=== PATIENT | female | born 1950 | race Two or more races ===

== ENCOUNTER → 2022-10-10 10:33 | Outpatient (BNVA) | payer MEDICARE, OTHER, SELFPAY | PROVIDERS: Visit Provider Student in an Organized Health Care Education/Training Program | DX: M35.01 Sjogren syndrome with keratoconjunctivitis (principal); D89.1 Cryoglobulinemia | CPT/HCPCS: 36415; 80053; 81001; 82595; 82784; 84156; 84165; 85025; 86140; 86160; 86225; 86334; 86431; 99202 ==

== ENCOUNTER 2022-10-10 11:32 | Outpatient (REF) | payer MEDICARE, OTHER, SELFPAY ==
[2022-10-10 12:07] LABS: MANUAL DIFF FLAG NO
[2022-10-10 12:37] LABS: Basophils Percent Auto 0.4 % (0-2); Eosinophils Absolute Auto 0.2 X10*3/uL (0.0-0.4); Eosinophils Percent Auto 3.1 % (0-4); Hematocrit 39.2 % (37.0-47.0); Hemoglobin 12.8 g/dl (12.0-16.0); Imm Gran Abs Auto 0.02 X10*3/uL (0.00-0.03); Imm Gran Pct Auto 0.4 % (0.0-0.4); Lymphocytes Absolute Auto 1.6 X10*3/uL (1.2-4.9); Mean Corpuscular HGB Conc 32.7 g/dl (31.0-35.0); Mean Corpuscular Hemoglobin 31.5 pg (27.0-33.0); Mean Corpuscular Volume 96.6 fL (80.0-98.0); Mean Platelet Volume 10.3 fL (9.4-12.3); Monocytes Absolute Auto 0.3 X10*3/uL (0.1-1.2); Monocytes Percent Auto 6.1 % (2-11); Neutrophils Absolute Auto 3.3 x10*3/uL (2.0-8.3); Platelet Count 288 X10*3/uL (160-400); Red Blood Count 4.06 X10*6/uL (4.20-5.50); Red Cell Distribution Width 13.3 % (11.0-16.0); White Blood Count 5.4 X10*3/uL (4.8-10.8)
[2022-10-10 12:55] LABS: Alanine Aminotransferase 23 U/L (0-31); Albumin Level 4.5 g/dL (3.5-5.0); Alkaline Phosphatase 53 U/L (39-117); Anion Gap 11 (12-20); Aspartate Amino Transferase 28 U/L (5-31); Bilirubin Total 0.6 mg/dL (0.0-1.0); Blood Urea Nitrogen 23 mg/dL (9-16); C Reactive Protein < 0.10 mg/dL (< or = 0.50); Calcium 10.7 mg/dL (8.4-10.2); Carbon Dioxide 31 mmol/L (22-29); Chloride 103 mmol/L (96-108); Estimated Glomerular Filt Rate > 60; Glucose Random 99 mg/dL (60-115); Potassium 4.3 mmol/L (3.3-5.1); Rheumatoid Factor 21.7 IU/mL (<15.0); Sodium 141 mmol/L (135-145); Total Protein 7.7 g/dL (6.5-8.0)
[2022-10-10 13:12] LABS: Appearance Urine Clear; Color Urine Yellow; Glucose Urine UA Negative (Negative); Leukocyte Esterase Urine Negative (Negative); Nitrite Urine Negative (Negative); PH 5.5 (5.0-9.0); Urine Blood Negative (Negative); Urine Ketones Negative (Negative); Urine Protein Negative (Neg-Trace)
[2022-10-10 13:18] LABS: Bacteria Urine None Seen (None Seen); Hyaline Casts Urine 0-2 /LPF (0-2); RBC Urine 0-2 /HPF (0-2); Squamous Epithelial Cell Urine 0-2 /HPF (0-2); WBC Urine 0-5 /HPF (0-5)
[2022-10-10 13:38] LABS: Creatinine Urine 30.96 mg/dL; Total Protein Urine Random < 7 mg/dL (<12)
[2022-10-12 17:04] LABS: Anti DNA DS Antibody <1 IU/mL
[2022-10-15 00:03] LABS: Prot Elec - Albumin 4.6 g/dL (3.8-4.8); Prot Elec - Alpha1 0.3 g/dL (0.2-0.3); Prot Elec - Alpha2 0.7 g/dL (0.5-0.9); Prot Elec - Beta 1 0.4 g/dL (0.4-0.6); Prot Elec - Beta 2 0.3 g/dL (0.2-0.5); Prot Elec - Gamma 1.3 g/dL (0.8-1.7); Prot Elec - Total Protein 7.5 g/dL (6.1-8.1)
[2022-10-16 23:08] LABS: IgA 249 mg/dL (70-320); IgG 1310 mg/dL (600-1540); IgM 81 mg/dL (50-300)
[2022-10-22 14:03] LABS: Complement C3 113 mg/dL (83-193)
== END 2022-10-10 11:33 | disposition home or self-care (01) ==
LOC: HO.10HDL 11:32
PROVIDERS: Visit Provider Student in an Organized Health Care Education/Training Program
DX: Z13.89 Encounter for screening for other disorder (principal)
CPT/HCPCS: 36415; 80053; 81001; 82595; 82784; 84156; 84165; 85025; 86140; 86160; 86225; 86334; 86431

== ENCOUNTER 2022-11-23 10:16 | Outpatient (REF) | payer MEDICARE, OTHER, SELFPAY ==
--- NOTE | 2022-11-23 11:32 | PFT_ITS ---
COMMENTS: Patient attended the maneuvers. Difficulties performing the FRC and lung volumes. The patient did get the best effort. DIAGNOSES: Sjogren's. SPIROMETRY: The FEV1 to FVC 87% with an FEV1 of 2.37 L, which is 128% predicted and an FVC of 2.73 L, which is 110% predicted. Bronchodilators were not used. Maximum voluntary ventilation 85% predicted. LUNG VOLUMES: Total lung capacity 114% predicted with a residual volume of 114% predicted. DIFFUSION CAPACITY: DLCO of 75% predicted. COMPARISONS: None. INTERPRETATION: No obstructive nor restrictive ventilatory defects identified. Post bronchodilator results are not available at this time. The patient did receive albuterol. The lung volumes are within normal limits, and the patient does have a mild diffusion impairment. Clinical correlation warranted. Beny Aguayo MD MR/MODL / [id number] MTDD
== END 2022-11-23 10:17 | disposition home or self-care (01) ==
LOC: HO.RESP 10:16
PROVIDERS: Visit Provider Student in an Organized Health Care Education/Training Program
DX: R06.02 Shortness of breath (principal)
CPT/HCPCS: 94010; 94727; 94729

== ENCOUNTER → 2022-11-23 11:32 | Outpatient (BNV) | payer MEDICARE, OTHER, SELFPAY | PROVIDERS: Visit Provider Hospitalist | DX: M35.00 Sjogren syndrome, unspecified (principal) | CPT/HCPCS: 94060; 94727; 94729 ==

== ENCOUNTER 2023-10-03 10:04 | Outpatient (AMB) | payer MEDICARE, OTHER, SELFPAY ==
--- NOTE | 2023-10-03 10:16 | A.OFFVIS_ITS ---
Vital Signs 10/03/23 10:21 Height 5 ft 1 in Weight 107 lb 12.897 oz BMI 20.4 BP 116/82 Blood Pressure Location Rt brachial Position Sitting Pulse 64 Pulse Oximetry (%) 98 Intake Visit Reasons: Sjogren's Intake Note: Patient last seen 10/10/22 presents today for follow up and test results. Allergies No Known Allergies Allergy (Verified 10/03/23 10:17) Medication List - Last Reconciled 10/03/23 by Ankur Gutierrez MD alendronate 70 mg PO QWEEK ascorbate calcium (vitamin C) 500 mg PO DAILY calcium carbonate-vitamin D3 600 mg-5 mcg (200 unit) 1 tab PO DAILY gznpwozr-gczqhgo-edyy-lutein tabs PO omega 2-gkz-oix-fish oil 1,000 mg (120 mg-180 mg) (Fish Oil) 1 cap PO DAILY HPI Comments Details: This is a 73-year-old female with Sjogren's syndrome who presents for follow-up. She states that she has been doing reasonably well overall. I and mouth dryness is controlled with eyedrops, nasal drops and lozenges. Raynaud's is well controlled. She gets intermittent aches in her neck and low back but nothing new. She states that she has a cough in the morning, she clears out some mucus then she is better throughout the day. She denies any cough throughout the day or shortness of breath. Has any heartburn or food getting stuck in her throat. Denies any fevers or weight loss. Initial history: This is a 72-year-old female with past medical history of Sjogren's who presents as a new patient. Her previous tank cleaner left the practice. Symptoms started in 2007 with left hip pain and neck pain as well as eye and oral dryness. Patient's symptoms have been fairly stable over the years without complications. She also has Raynaud's. Patient however never had any complications of Raynaud's. She never went to the emergency room for Raynaud's and never developed digital tip ulcers. She is complaining of right sided neck pain and difficulty turning her head. She has a massaging heating pad that does seem to help. She has done physical therapy for her neck a few years ago which was helpful. Patient states that she has chronic dry eyes and dry mouth. Uses artificial tears for the eyes and drinks plenty of water for dry mouth, also us es plenty of carbonated beverages such as ulcers. She denies any cough or shortness of breath. Denies reflux. On alendronate by PCP. She denies any fevers or weight loss. [facility] Medical History Hx of abnormal cervical Papanicolaou smear Abnormal findings on diagnostic imaging of breast Systolic murmur Disorder of connective tissue Rosacea Surgical History History of removal of skin mole Family History Father Rheumatoid arthritis Lung cancer Heart disease Mother Thyroid disease Sister Thyroid disease Daughter Thyroid disease Social History Household Members: Spouse Housing: Apartment Alcohol intake: current Alcohol type: beer Patient Tobacco Use Status: Former Tobacco user Current occupational status: retired Review of Systems Eyes Reports dry eyes ENT Reports neck pain Card Reports no additional complaints Resp Reports cough Musc Reports neck pain Physical Exam Vital Signs: Last Vital Signs Pulse 64 10/03/23 10:21 BP 116/82 10/03/23 10:21 Pulse Ox 98 10/03/23 10:21 BMI result Body Mass Index 20.4 Const General: cooperative, healthy appearing and comfortable Nutritional Appearance: average body habitus Orientation/consciousness: patient oriented x3 Limitations: no limitations HEENT Head: Yes normocephalic and Yes atraumatic Resp Effort & Inspection: normal respiratory effort and able to speak in complete sentences Auscultation: clear to auscultation bilaterally Cardio Rate: regular rate Rhythm: regular rhythm GI Inspection: No distended Palpation (GI): Soft to palpation and nontender Neuro General: patient oriented x3 Extrem Other: Mild osteoarthritic changes of both hands with no active synovitis Normal nailfold capillaroscopy Results Reviewed Results Reviewed: Labs 04/02? FABIO positive? ESR 2? CRP normal Immunofixation and SPEP normal? 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 RF 17 (<14) + HLA b27 in the past Intermittent low titer + DSdNA in the past Assessment & Plan Assessment & Plan (1) Sjogrens syndrome: Comment: onset 2007 (arthralgias, dry eyes, dry mouth, Raynaud's, +FABIO,+++SSA, ++SSb, +RF, intermittent low titer positive DsDNA, intermittent low C3, +HLA b27) Code(s): M35.00 - Sjogren syndrome, unspecified Category: Medical Qualifiers: Sjogren organ or system involvement: keratoconjunctivitis Qualified Code(s): M35.01 - Sjogren syndrome with keratoconjunctivitis Plan: This is a 73-year-old female with Sjogren syndrome who presents for follow-up. Sicca symptoms are well controlled as well as Raynaud's symptoms. Patient has been having some technical services assistant cough. This might be due to mild reflux. I suggested sleeping more elevated such as using 3 pillows.. If no improvement, consider ccbd-noo-mdacioc Pepcid trial for 2-4 weeks. Will order PFT and 2D echo to screen for ILD/PAH. Also check labs to screen for disease activity as well as screen for paraproteinemias. 2D echo/PFT labs to be completed in July. Follow-up in September of 2024 Plan I spent 32 minutes reviewing patient's chart, evaluating patient, ordering diagnostic workup, counseling patient and documenting in the chart Orders: Orders PFT pulmonary function test 07/13/24. - Sjogren syndrome with keratoconjunctivitis, R06.00 - Dyspnea, unspecified CA echo transthoracic complete 07/13/24. - Sjogren syndrome with keratoconjunctivitis Anti DNA DS Antibody 07/13/245. - Sjogren syndrome with keratoconjunctivitis Complement C3 07/13/245. - Sjogren syndrome with keratoconjunctivitis Complement C4 07/13/245. - Sjogren syndrome with keratoconjunctivitis Erythrocyte Sedimentation Rate 07/13/245. - Sjogren syndrome with keratoconjunctivitis Protein Creatinine Ratio, Ur 07/13/245. - Sjogren syndrome with keratoconjunctivitis UA w Microscopic 07/13/245. - Sjogren syndrome with keratoconjunctivitis Comprehensive Met. Panel 07/13/24. - Sjogren syndrome with keratoconjunctivitis C Reactive Protein 07/13/24 M35. - Sjogren syndrome with keratoconjunctivitis Complete Blood Count Auto Diff 07/13/24 M35. - Sjogren syndrome with keratoconjunctivitis Immunofixation Pnl, Serum 07/13/24 M35. - Sjogren syndrome with keratoconjunctivitis Protein Electrophoresis, Serum 07/13/24 M35. - Sjogren syndrome with keratoconjunctivitis Rheumatoid Factor 07/13/24 M35. - Sjogren syndrome with keratoconjunctivitis Coding Level of Care Code Est Pt Level 4 (39721) Diagnoses Sjogren's syndrome with keratoconjunctivitis sicca M35. Sjogren organ or system involvement: keratoconjunctivitis
[2023-10-03 10:21] VITALS: BP 116/82; PULSE 64; O2SAT 98; BMI 20.4
== END 2023-10-03 10:37 | disposition home or self-care (01) ==
PROVIDERS: PCP Registered Nurse; Visit Provider Student in an Organized Health Care Education/Training Program
DX: M35.01 Sjogren syndrome with keratoconjunctivitis (principal)
CPT/HCPCS: 99214

== ENCOUNTER → 2023-10-03 10:04 | Outpatient (BNVA) | payer MEDICARE, OTHER, SELFPAY | PROVIDERS: Visit Provider Student in an Organized Health Care Education/Training Program | DX: M35.01 Sjogren syndrome with keratoconjunctivitis (principal) | CPT/HCPCS: 99212 ==